=== PATIENT | female | born 1995 | race Caucasian/White ===

== ENCOUNTER 2018-05-24 00:16 | Inpatient (IN) ==
[2018-05-24] MEDS ORDERED: DEXTROSE 5%-LACTATED RINGERS 1,000 ML IV PRN (00:31)
[2018-05-24] MEDS ORDERED: OXYTOCIN/DEXTROSE 5%-WATER 30 UNITS/500 ML BAG IV ONE (00:31)
[2018-05-24] MEDS ORDERED: RINGER'S SOLUTION,LACTATED 1,000 ML IV ONE (00:31)
[2018-05-24] MEDS ORDERED: ONDANSETRON HCL/PF 2 MG/ML VIAL IV PRN ×2 (00:31→11:56)
--- NOTE | 2018-05-24 10:51 | PN ---
Progess Note - Interim Date: 05/24/18 Time: 10:45 - seen at 0850 Narrative: 05/24/18 10:45 Patient rating her contractions as mild Vital signs stable. Pitocin at 12 mu/min. FHT: 140 baseline, reassuring Contractions q 25 min Cervix: 2/90/-2, AROM-clear at approximately 0850 Impression: Intrauterine at 40 5/7 weeks induction of labor for postdates Plan: Continue present plan
[2018-05-24] MEDS ORDERED: BUPIVACAINE HCL/0.9 % NACL/PF 250 ML EP PRN (11:56)
[2018-05-24] MEDS ORDERED: NALOXONE HCL 1 MG/1 ML SYRG IV PRN (11:56)
[2018-05-24] MEDS ORDERED: fentaNYL CITRATE/PF 50 MCG/ML AMPUL IT SCH (12:00)
--- NOTE | 2018-05-24 12:10 | ANES ---
Anesthesia Pre Procedure Eval Vitals/Labs: Last Vital Signs Temp 35.7 C L 05/24/18 12:06 Pulse 67 05/24/18 12:06 Resp 20 05/24/18 12:06 BP 124/85 05/24/18 12:06 Pulse Ox 98 05/24/18 12:06 HOME MEDICATIONS levothyroxine 150 mcg tablet 175 mcg PO DAILY tab 04/25/18 [Last Taken 09:00] Allergies/Adverse Reactions: Allergies Allergy/AdvReac Type Severity Reaction Status Date / Time NSAIDS (Non-Steroidal Allergy Intermediate rash, Verified 05/24/18 00:28 Anti-Inflamma trouble breathing - Planned Procedure Planned Procedure: INDUCTION Medication List Reviewed:: Yes Allergies Verified: Yes Medical History (Last Reviewed 05/24/18 @ 12:09 by Hossein Ahuja CRNA) Bilateral knee pain Onset Date: 01/29/15 Joint pain Onset Date: Unknown Low back pain Onset Date: 04/16/15 Anxiety Onset Date: Unknown Constipation Onset Date: Unknown Depression Onset Date: 08/26/14 Migraine Onset Date: 08/26/14 Rheumatoid arthritis Onset Date: Unknown Deliberate self-cutting Onset Date: 08/26/14 Hyperthyroidism Onset Date: Unknown Surgical History (Last Reviewed 05/24/18 @ 12:09 by Hossein Ahuja CRNA) Hx laparoscopic cholecystectomy Onset Date: ~2006 Family History (Last Reviewed 05/24/18 @ 12:09 by Hossein Ahuja CRNA) Father COPD (chronic obstructive pulmonary disease) Mother Alive and well Grandmother COPD (chronic obstructive pulmonary disease) - Family Anesthesia History Family History:: no untoward family reactions to anesthesia - Airway/Neck/Teeth Within Normal Limits:: Yes Mallampatti Score: 2 Thyromental (T-M) distance: > 6 cm Mandibulo Hyoid distance: > 3 cm - Respiratory Respiratory: lungs clear Smoking Status: Never smoker - Cardiovascular Patient History - Cardiac/Respiratory: No pertinent hx Tolerates Activity: Fair Heart Sounds: S1 & S2, Regular - Anesthesia Assessment and Plan ASA Class: PS, II, E Anesthesia Type Plan: Epidural
--- NOTE | 2018-05-24 12:36 | ANES ---
Anesthesia Procedure Note Procedure Note: ANESTHESIA PROCEDURE NOTE Date of Procedure: 05/24/2018 Time of procedure:[]. 1230 Performed by: Lennox Ahuja CRNA Structural Steel Fitter: None. Preprocedure diagnosis: Active labor. Post procedure diagnosis: Same. Procedure: Insertion of labor epidural. Indications: The patient is a [22] -year-old [prima para] female in active labor requesting labor epidural for pain management. Findings: See below. Details of the procedure: The patient was placed in a sitting position. Back was prepped with DuraPrep. Patient was then draped in a sterile fashion. Lidocaine 1% was infiltrated to the skin and subcutaneous tissues at the level of the L3 4 interspace. The epidural space was identified using a 18-gauge Tuohy needle with [id number] technique. 20 mcg fentanyl was given intrathecally using a 27 ga. spinal needle. Epidural catheter was inserted without difficulty. Negative test dose was elicited using 5 mL of 1.5% preservative-free lidocaine plus epinephrine 1 200,000. The epidural catheter was then taped and secured in place. EBL: Minimal. Fluids: N/A. Specimen: N/A. Post procedure condition: The patient tolerated the procedure well. No complications were noted. Thank you for this consultation. Vicente CRNA
--- NOTE | 2018-05-24 12:37 | ANES ---
Post Anesthesia Discharge - Transfer of Care Transfer of Care handoff given to nurse: Yes - Anesthesia Post Op Note Anesthesia Post Op Note: Care transferred to OB RN
--- NOTE | 2018-05-24 13:09 | PN ---
Progess Note - Interim Date: 05/24/18 Time: 13:07 Narrative: 05/24/18 13:07 Patient comfortable with epidural Vital signs stable. Pitocin at 12 mu/min. FHT: 120 baseline, reassuring Contractions q 2-3 min Cervix: 2/90/-2, floor bag ruptured with more clear fluid, IUPC and FSE placed due to slow progress and difficulty monitoring interactions and baby Impression: Intrauterine at 40 5/7 weeks induction of labor for postdates Plan: Continue present plan
--- NOTE | 2018-05-24 17:56 | ANES ---
Post Anesthesia Assessment - Vital Signs Vitals: Last Vital Signs Temp 37.2 C 05/24/18 12:28 Pulse 77 05/24/18 12:28 Resp 18 05/24/18 12:28 BP 144/62 H 05/24/18 12:28 Pulse Ox 97 05/24/18 12:28 Airway Patency: Normal - Mental Status Level Of Consciousness: Awake - Pain Level Pain Score: 3 - N/V Assessment Nausea/Vomiting Presence: None Dehydration:: No
--- NOTE | 2018-05-24 18:03 | HP ---
Chief Complaint - Chief Complaint Date of Service: 05/24/18 Time of Service: 17:54 Chief Complaint: induction of labor for post dates History of Present Illness: 22 yo at 40 5/7 wks presents for induction of labor due to post dates. This complicated by depression, hypothyroidism. Rh positive (B+) RNI GBS negative Medical History (Last Reviewed 05/24/18 @ 17:56 by Alexi Kraus DO) Bilateral knee pain Onset Date: 01/29/15 Joint pain Onset Date: Unknown Low back pain Onset Date: 04/16/15 Anxiety Onset Date: Unknown Constipation Onset Date: Unknown Depression Onset Date: 08/26/14 Migraine Onset Date: 08/26/14 Rheumatoid arthritis Onset Date: Unknown Deliberate self-cutting Onset Date: 08/26/14 Hyperthyroidism Onset Date: Unknown Surgical History: Surgical History (Last Reviewed 05/24/18 @ 17:56 by Alexi Kraus DO) Hx laparoscopic cholecystectomy Onset Date: ~2006 Family History: Family History (Last Reviewed 05/24/18 @ 17:56 by Alexi Kraus DO) Father COPD (chronic obstructive pulmonary disease) Mother Alive and well Grandmother COPD (chronic obstructive pulmonary disease) Social History: Preferred Language Panamanian Smoking Status Never smoker Psych History Hx of Anxiety,Hx of Depression Review Of Systems (GEN) - Review of Systems Generalized/Overall Review: Present: No Symptoms Reported EENTM: Present: No Symptoms Reported Respiratory: Present: No Symptoms Reported Cardiac: Present: No Symptoms Reported Abdominal: Present: No Symptoms Reported Genitourinary: Present: No Symptoms Reported Musculoskeletal: Present: No Symptoms Reported Neurological: Present: No Symptoms Reported Skin: Present: No Symptoms Reported Endocrine: Present: No Symptoms Reported Immunizations: IMMUNIZATION HX Immunizations Up to Date Yes History of Influenza Vaccine No Allergies/Adverse Reactions: Allergies Allergy/AdvReac Type Severity Reaction Status Date / Time NSAIDS (Non-Steroidal Allergy Intermediate rash, Verified 05/24/18 00:28 Anti-Inflamma trouble breathing Home Medications: HOME MEDICATIONS levothyroxine 150 mcg tablet 175 mcg PO DAILY tab 04/25/18 [Last Taken 09:00] Exam - Exam Vital Signs: Vital Signs - Last Taken Temp 37.2 C 05/24/18 12:28 Pulse 77 05/24/18 12:28 Resp 18 05/24/18 12:28 BP 144/62 H 05/24/18 12:28 Pulse Ox 97 05/24/18 12:28 Repeat BPs WNL Constitutional: Present: Alert, Oriented x3, Cooperative, No distress ENT Exam: Present: hearing grossly normal Breasts: Present: Exam deferred Respiratory: Present: lungs clear, no respiratory distress Cardiovascular/Chest: Present: regular rate, rhythm, no edema Abdomen: Present: soft, nontender, no rebound tenderness, other - Gravid /Rectal: Present: Other - 2/70/-2 Extremity: Present: non-tender, no pedal edema, no calf tenderness Skin Exam: Present: normal color, warm/dry, no cyanosis Neurologic: Present: alert, normal mood/affect, oriented x 3 Appearance: Present: appropriate appearance Eye contact: Present: cooperative, good eye contact, normal speech Thoughts: Present: normal thought pattern Assessment/Plan - Assessment/Plan (1) Post-dates Assessment: Admit for pitocin induction of labor. Epidural PRN. Problem: Acute Qualifiers: Post-term type: 40-42 weeks gestation Qualified Code(s): O48.0 - Post-term (2) Hypothyroid Problem: Chronic Qualifiers: Hypothyroidism type: unspecified Qualified Code(s): E03.9 - Hypothyroidism , unspecified (3) Depression Problem: Inactive Qualifiers: Depression Type: unspecified Qualified Code(s): F32.9 - Major depressive disorder, single episode, unspecified
--- NOTE | 2018-05-24 20:58 | PN ---
Progess Note - Interim Date: 05/24/18 Time: 20:54 Narrative: 05/24/18 20:54 Patient comfortable with epidural Vital signs stable. Pitocin at 6 mu/min. FHT: 135 baseline, good beat to beat variability with accelerations and occasional variable deceleration with late component Contractions q 2-3 min Cervix: Complete/-1 station/large caput Impression: Intrauterine at 40 5/7 weeks induction of labor for postdates, protracted descent Plan: Patient labor down for over an hour and a half and is now pushing. Hopefully spontaneous vaginal delivery within the next 1-2 hours.
[2018-05-25] MEDS ORDERED: BISACODYL 10 MG SUPP.RECT RC PRN (01:51)
[2018-05-25] MEDS ORDERED: oxyCODONE HCL/ACETAMINOPHEN 1 TAB TABLET PO PRN (01:51)
[2018-05-25] MEDS ORDERED: HYDROCORTISONE 30 APPL TUBE TP PRN (01:51)
[2018-05-25] MEDS ORDERED: SENNOSIDES 8.6 MG TABLET PO PRN (01:51)
[2018-05-25] MEDS ORDERED: OXYTOCIN/DEXTROSE 5%-WATER 30 UNITS/500 ML BAG IV ONE (01:51)
[2018-05-25] MEDS ORDERED: BENZOCAINE/MENTHOL 81 SPRAY CAN TP PRN (01:51)
[2018-05-25] MEDS ORDERED: GLYCERIN/WITCH HAZEL LEAF 40 APPL BOX TP PRN (01:51)
--- NOTE | 2018-05-25 02:23 | OR ---
Operative Report - Dictated Report Narrative: Indication: Maternal exhaustion with poor propulsive effort Pre Procedure Patient was counseled to the risk, benefits, and alternatives to operative vaginal delivery. All questions were answered. Patient consented to proceed with operative vaginal delivery. heart rate interpretation: Reassuring, EFW 3800 g, station +2, Position of head OP, Anesthesia: epidural Cervix was completely dilated and effaced, maternal- size appropriate for application, bladder was emptied Procedure Blanc/Luikart forceps were easily applied, hinge/lock approximated without difficulty, 2 pulls with advancement in station with each pull. But due to resistance, the forceps were removed and the fetus was manually rotated from OP to OA position. The forceps were reapplied and with one easy pull the head was delivered. The forceps were removed as the brow cleared the perineum. Post Procedure Viable male born at 0124 on 05/25/2016 with Apgars 8 and 9, weighing 3752 g. Cord gases not collected, Placenta spontaneously delivered, EBL 100 mL,, mild erythema from forceps on cheeks bilaterally, mild shoulder dystociasee below. Lacerations: none Shoulder dystocia information: 2nd stage of labor: 6 hours and 10 minutes , Head/body interval: 90 seconds Diabetes: No Attendants at : [OB: Alexi Kraus, Ped: not present, Nurses: Kelley Elliott and Chandni Arellano, Others: none Position of head at delivery: OA Right shoulder anterior Maneuvers used: Parish yes, Suprapubic pressure yes, Wood's screw yes, Delivery of posterior shoulder yes, Arm sweep yes, Episiotomy no, Other: None Description: Above maneuvers performed with final clearance of the anterior shoulder made with a combination of wood screw maneuver arm sweep and delivery of posterior shoulder. moving all extremities at yes, Injuries noted: none Cord gases not obtained Mother informed of dystocia and potential sequelae. Recommendations for future pregnancies: Avoid vaginal delivery of as large as this one. History for MU Definition: * The number of deliveries resulting in a live the patient experienced prior to current hospitalization * The previous delivery of live twins or any live multiple gestation is considered one live event. *If primagravida or nulliparous is documented select zero for the number of previous live births. Live Events: 0
[2018-05-25] MEDS: oxyCODONE HCL/ACETAMINOPHEN 1 TAB TABLET PO PRN ×5 (02:43→23:59)
[2018-05-25] MEDS: LEVOTHYROXINE SODIUM 175 MCG TABLET PO SCH ×2 (07:08→07:46)
[2018-05-25] MEDS: DOCUSATE SODIUM 100 MG CAPSULE PO SCH ×2 (09:06→21:42)
--- NOTE | 2018-05-26 10:36 | PN ---
Subjective - Date and Time Seen Date: 05/26/18 Time: 10:35 Objective - Vitals Vitals: Last Vital Signs Temp 36.8 C 05/26/18 08:45 Pulse 77 05/26/18 08:45 Resp 18 05/26/18 08:45 BP 113/73 05/26/18 08:45 Pulse Ox 99 05/26/18 08:45 Patient denies complaints. Lochia wnl Abdomen - soft, nontender Uterus - firm, at umbilicus - 1 No calf tenderness Impression: day #1 - s/p spontaneous vaginal delivery. Anxiety/ depression stable. Hypothyroidism-stable Plan: Continue routine care Cauti Physician Documentation - Urinary Catheter Management Urethral ([place]) Date of Insertion: 05/24/18 Time of Insertion: 13:00 Assessment/Plan - Problems/Diagnosis (1) Post-dates Problem: Acute Qualifiers: Post-term type: 40-42 weeks gestation Qualified Code(s): O48.0 - Post-term (2) Hypothyroid Problem: Chronic Qualifiers: Hypothyroidism type: unspecified Qualified Code(s): E03.9 - Hypothyroidism , unspecified (3) Depression Problem: Inactive Qualifiers: Depression Type: unspecified Qualified Code(s): F32.9 - Major depressive disorder, single episode, unspecified
[2018-05-26] MEDS: LEVOTHYROXINE SODIUM 175 MCG TABLET PO SCH (10:50)
[2018-05-26] MEDS: DOCUSATE SODIUM 100 MG CAPSULE PO SCH ×2 (10:51→20:40)
[2018-05-26] MEDS: oxyCODONE HCL/ACETAMINOPHEN 1 TAB TABLET PO PRN (10:51)
[2018-05-27] MEDS: LEVOTHYROXINE SODIUM 175 MCG TABLET PO SCH (07:40)
[2018-05-27 07:57] VITALS: BP 113/65
== END 2018-05-27 12:30 | disposition home or self-care (01) | DRG 775 ==
LOC: EDSTATUS 00:24 → OB 00:24
PROVIDERS: ADMIT Obstetrics & Gynecology; ATTEND Obstetrics & Gynecology
CPT/HCPCS: 59025; 88307